=== PATIENT | male | born 1990 | race African-American/Black ===

== ENCOUNTER 2023-10-24 19:29 | Emergency (ER) | payer SELFPAY ==
[~2023-10-24] VITALS: Ht 182.9 cm; Wt 99.8 kg
[2023-10-24 19:29] VITALS: BP 150/77; PULSE 95; RESP 20; TEMP 101.9; O2SAT 96
[2023-10-24 20:05] LABS: INFLUENZA VIRUS B ANTIGEN NEGATIVE (NEG)
[2023-10-24 20:07] LABS: INFLUENZA VIRUS A ANTIGEN POSITIVE (NEG)
[2023-10-24 20:40] VITALS: BP 133/72; PULSE 92; RESP 18; O2SAT 95
== END 2023-10-24 20:42 | disposition home or self-care (01) ==
LOC: ER 19:29
DX: J10.1 Influenza due to other identified influenza virus with other respiratory manifestations (principal); Z20.822 Contact with and (suspected) exposure to COVID-19
CPT/HCPCS: 87426; 87804; 99283

== ENCOUNTER 2023-10-25 19:53 | Emergency (ER) | payer SELFPAY ==
[~2023-10-25] VITALS: Ht 182.9 cm; Wt 99.8 kg
[2023-10-25 20:00] VITALS: BP 163/88; PULSE 75; RESP 22; TEMP 99.1; O2SAT 96
== END 2023-10-25 20:20 | disposition home or self-care (01) ==
LOC: ER 19:53
DX: J10.1 Influenza due to other identified influenza virus with other respiratory manifestations (principal)
CPT/HCPCS: 99283